=== PATIENT | male | born 1990 | race African-American/Black ===

== ENCOUNTER 2019-03-26 21:19 | Emergency (ER) | payer MEDICAID, OTHER ==
[~2019-03-26] VITALS: Ht 177.8 cm; Wt 77.6 kg
[2019-03-26 21:48] VITALS: BP 168/111
--- NOTE | 2019-03-26 22:03 | NUR ---
STREP SWAB COMPLETED AND SENT TO LAB
== END 2019-03-26 22:51 | disposition home or self-care (01) ==
LOC: ER 21:23
DX: J06.9 Acute upper respiratory infection, unspecified (principal); I10 Essential (primary) hypertension; G40.909 Epilepsy, unspecified, not intractable, without status epilepticus; Z98.890 Other specified postprocedural states
CPT/HCPCS: 86403-TC; 87070-TC

== ENCOUNTER 2023-09-04 18:10 | Emergency (ER) | payer BC, MEDICAID, OTHER ==
[~2023-09-04] VITALS: Ht 177.8 cm; Wt 83.9 kg
[2023-09-04] MEDS ORDERED: FEXO-65 PO (19:29)
[2023-09-04] MEDS ORDERED: PRED50TA PO (19:29)
[2023-09-04] MEDS ORDERED: predniSONE 50 MG TABLET PO ONE (19:30)
[2023-09-04] MEDS ORDERED: predniSONE 20 MG TABLET ONE (19:41)
[2023-09-04 19:50] VITALS: BP 138/89; TEMP 98; O2SAT 98
== END 2023-09-04 19:51 | disposition home or self-care (01) ==
LOC: ER 18:21
DX: R21 Rash and other nonspecific skin eruption (principal); I10 Essential (primary) hypertension

== ENCOUNTER → 2024-04-08 | Emergency (ER) | payer MEDICAID, OTHER ==
[~2024-04-08] VITALS: Ht 177.8 cm; Wt 77.1 kg
[~2024-04-08] MED LIST: CEFD300C3 PO; FEXO-65 PO; PRED50TA PO
[2024-04-08 12:27] LABS: APPEARANCE,URINE Clear (CLEAR); BILIRUBIN,URINE Negative (NEGATIVE); BLOOD, URINE Negative Ery/uL (NEGATIVE); COLOR,URINE YELLOW (YELLOW); KETONES,URINE Trace mg/dL (NEGATIVE); LEUKOCYTE ESTERASE ,URINE Negative (NEGATIVE); NITRITE, URINE Negative (NEGATIVE); PROTEIN,URINE Negative (NEGATIVE); UGLUCOSE Negative (NEGATIVE); UROBILINOGEN,URINE 0.2 EU/dL (0.2)
[2024-04-08 12:40] LABS: ADD URINE CULTURE NO; BACTERIA,URINE Few /HPF (None Seen); MUCUS,URINE Few /LPF (None Seen); RBC,URINE 0-2 /HPF (0-2)
[2024-04-08 12:58] LABS: SQUAMOUS EPITHELIAL CELL,UR Few /HPF (None Seen)
[2024-04-08 13:24] VITALS: BP 127/68; TEMP 98; O2SAT 100
== END | disposition home or self-care (01) ==
LOC: ER 12:14
DX: N39.0 Urinary tract infection, site not specified (principal); R30.0 Dysuria; R56.9 Unspecified convulsions; I10 Essential (primary) hypertension
CPT/HCPCS: 81001

== ENCOUNTER 2025-01-21 13:17 | Emergency (ER) | payer OTHER ==
[~2025-01-21] VITALS: Ht 177.8 cm; Wt 81.6 kg
[2025-01-21 13:33] VITALS: BP 170/111; TEMP 98.1
[2025-01-21] MEDS ORDERED: AMOX-430 PO (15:28)
[2025-01-21 15:32] VITALS: O2SAT 98
== END 2025-01-21 15:35 | disposition home or self-care (01) ==
LOC: ER 13:20
DX: J32.9 Chronic sinusitis, unspecified (principal); I10 Essential (primary) hypertension; Z79.52 Long term (current) use of systemic steroids; Z86.69 Personal history of other diseases of the nervous system and sense organs
CPT/HCPCS: 71046